=== PATIENT | female | born 1955 | race Caucasian/White ===

== ENCOUNTER → 2019-01-26 | Outpatient (CLI) | payer BC ==
--- NOTE | 2019-01-27 09:10 | MR ---
EXAMINATION TYPE: MR shoulder RT wo con DATE OF EXAM: 01/26/2019 COMPARISON: Outside x-ray dated 01/19/2019 HISTORY: RT SHOULDER PAIN X1 MONTH - PT FELL OFF OF DECK, OUTSIDE SHOULDER IMAGES ON PACS TECHNIQUE: Multiplanar, multisequence imaging of the right shoulder is performed without contrast. FINDINGS: There is narrowing of the glenohumeral joint with a small joint effusion. There is a degree of atrophy involving the rotator cuff much musculature. There is a complete tear of the supraspinatu s tendon and near complete tear of the infraspinatus tendon. Retraction of the supraspinatus tendon i s seen to the level the margin of the acromion subscapularis tendon intact. Bicipital tendon appears situated bicipital groove there is increased fluid surrounding the bicipital tendon. Chronic hypertrophic spurring along greater tuberosity. Grossly the bony labrum are intact. Glenohume ral ligaments appear to be intact. Hypertrophic spurring is seen involving the AC joint with mass effect and impingement upon the rotato r cuff. Fluid within the subacromial subdeltoid space noted. IMPRESSION: 1. Marked tendinopathy of the supra and infraspinatus tendons. There is a complete through thickness tear with retraction of the supraspinatus tendon to the level of the margin of the acromion. Note is made that there is some muscular atrophy of the rotator cuff musculature. 2. Through thickness partial but near complete tear insertion of the infraspinatus tendon with no nola dence of retraction. 3. There is a glenohumeral joint effusion. 4. Arthropathy of the AC joint and glenohumeral joint. AC joint arthropathy contributes to impingemen t. 5. Bicipital tendinosis.
== END | disposition home or self-care (01) ==
LOC: RADMRIMAIN 18:36
PROVIDERS: ATTEND Orthopaedic Surgery
DX: S46.811A Strain of other muscles, fascia and tendons at shoulder and upper arm level, right arm, initial encounter (principal); M19.011 Primary osteoarthritis, right shoulder; M67.813 Other specified disorders of tendon, right shoulder; M62.511 Muscle wasting and atrophy, not elsewhere classified, right shoulder

== ENCOUNTER → 2020-01-01 | Outpatient (CLI) | payer BC ==
--- NOTE | 2020-01-01 10:04 | US ---
EXAMINATION TYPE: US liver DATE OF EXAM: 01/01/2020 COMPARISON: NONE CLINICAL HISTORY: R74.8 Abnormal liver enzymes. Elevated liver enzymes EXAM MEASUREMENTS: Liver Length: 19.5 cm Gallbladder Wall: 0.2 cm CBD: 0.4 cm Right Kidney: 11.1 x 5.0 x 4.9 cm Pancreas: obscured by overlying midline bowel gas Liver: enlarged, heterogeneous Gallbladder: 2.8cm echogenic shadowing focus Evidence for sonographic Bar's sign: no CBD: visualized portions wnl, limited by overlying bowel gas Right Kidney: wnl IMPRESSION: 1. Cholelithiasis 2. Hepatomegaly with mild fatty infiltration.
== END | disposition home or self-care (01) ==
LOC: RADUSWWP 09:02
PROVIDERS: ATTEND Family Medicine
DX: K80.20 Calculus of gallbladder without cholecystitis without obstruction (principal); R16.0 Hepatomegaly, not elsewhere classified; K76.0 Fatty (change of) liver, not elsewhere classified
CPT/HCPCS: 76705

== ENCOUNTER 2021-01-02 13:25 | Observation (INO) | payer BC ==
--- NOTE | 2021-01-02 13:49 | ED ---
Chest Pain HPI - General Chief Complaint: Chest Pain Stated Complaint: chest pain, SOB Time Seen by Provider: 01/02/21 13:35 Source: patient Mode of arrival: ambulatory Limitations: no limitations - History of Present Illness Initial Comments: 65-year-old female past history of diabetes who presents emergency room with reported chest pain. Patient reports that she began having chest pain last night while she was doing paperwork. Pain was located in the left side of her chest and radiated to her left arm. She had associated shortness of breath and palpitations. No history of cardiac disease. She denies cough, fevers or chills. No history of DVT or PE. Does admit to lower extremity swelling which is new over the past month. Pain subsided but then reoccurred today. She has no recent cardiac workup. No ripping or tearing physician to her back. No exposure to Covid. No other alleviating, Perceptin or modifying factors - Related Data Home Medications Medication Instructions Recorded Confirmed Atorvastatin [Lipitor] 40 mg PO HS 06/27/19 01/02/21 Famotidine 40 mg PO HS 06/27/19 01/02/21 lisinopriL [Zestril] 5 mg PO HS 06/27/19 01/02/21 metFORMIN HCL [Glucophage] 1,000 mg PO BID 06/27/19 01/02/21 sitaGLIPtin [Januvia] 100 mg PO DAILY 06/27/19 01/02/21 Biotin 5 mg PO DAILY 01/02/21 01/02/21 Cholecalciferol (Vitamin D3) 125 mcg PO HS 01/02/21 01/02/21 [Vitamin D3 (5000 Iu)] Cinnamon Bark [Cinnamon] 1,000 mg PO BID 01/02/21 01/02/21 Cyanocobalamin (Vitamin B-12) 2,000 mcg PO DAILY 01/02/21 01/02/21 [Vitamin B-12] Ferrous Sulfate [Feosol] 325 mg PO HS 01/02/21 01/02/21 Magnesium Oxide [Hay] 500 mg PO HS 01/02/21 01/02/21 [place]-3 1000mg & [place] Oil 1 cap PO HS 01/02/21 01/02/21 Potassium Gluconate 99 mg PO DAILY 01/02/21 01/02/21 Thiamine HCl [Vitamin B-1] 100 mg PO BID 01/02/21 01/02/21 Turmeric Root Extract [Turmeric] 500 mg PO HS 01/02/21 01/02/21 Visionary Advanced 2 1 tab PO BID 01/02/21 01/02/21 Vitamin C/Biotin [Hair, Skin and 1 tab PO DAILY 01/02/21 01/02/21 Nails] Allergies Allergy/AdvReac Type Severity Reaction Status Date / Time sulfamethoxazole Allergy Anaphylaxis Verified 01/02/21 14:17 [From Bactrim] trimethoprim [From Bactrim] Allergy Anaphylaxis Verified 01/02/21 14:17 Review of Systems ROS Statement: Those systems with pertinent positive or pertinent negative responses have been documented in the HPI. ROS Other: All systems not noted in ROS Statement are negative. EKG Findings - EKG Comments: EKG Findings:: EKG demonstrates normal sinus rhythm with a ventricular rate of 93. MT interval 184. QRS 84. QTC of 452. No acute ST segment elevations or depressions. T-wave in lead 3 Past Medical History Past Medical History: Chest Pain / Angina, Diabetes Mellitus, GERD/Reflux, Osteoarthritis (OA), Pneumonia, Skin Disorder Additional Past Medical History / Comment(s): psoriasis, has bad knee-occ uses a cane History of Any Multi-Drug Resistant Organisms: None Reported Past Surgical History: Hysterectomy Past Anesthesia/Blood Transfusion Reactions: Motion Sickness Past Psychological History: No Psychological Hx Reported Smoking Status: Never smoker Past Alcohol Use History: None Reported Past Drug Use History: None Reported - Past Family History Mother Family Medical History: No Reported History General Exam Limitations: no limitations Course Vital Signs 01/02/21 01/02/21 13:26 16:03 Temperature 98.1 F Pulse Rate 95 86 Respiratory 20 16 Rate Blood Pressure 125/73 123/69 O2 Sat by Pulse 99 98 Oximetry Chest Pain MDM - MDM Upon arrival patient is placed into room 6. There are history of physical exam is performed. Patient hooked to continuous pulse ox and cardiac monitoring. 12-lead EKG is performed which demonstrates no acute ST segment elevation. Laboratory studies are conducted which demonstrated a negative d-dimer and a negative troponin. Chest x-ray demonstrates no acute cardiopulmonary process. Results are discussed with the patient. Did recommend admission for patient's concerning symptoms. Patient agreed to this. Spoke with Dr. Pitt who agreed to admit the patient. Patient is currently awaiting a bed on the floor Disposition Clinical Impression: Chest pain Disposition: ADMITTED IP TO THIS [facility] Condition: Stable Is patient prescribed a controlled substance at d/c from ED?: No Decision to Admit Reason: Admit from EC Decision Date: 01/02/21 Decision Time: 15:54
--- NOTE | 2021-01-02 14:43 | XR ---
EXAMINATION TYPE: XR chest 2V DATE OF EXAM: 01/02/2021 COMPARISON: NONE HISTORY: Chest pain TECHNIQUE: Frontal and lateral views of the chest are obtained. FINDINGS: There is no focal air space opacity, pleural effusion, or pneumothorax seen. The cardiac silhouette size is within normal limits. The osseous structures are intact. IMPRESSION: No acute cardiopulmonary process.
[2021-01-02 14:46] LABS: Basophils % (A) 0 %; Eosinophils # (A) 0.1 k/uL (0-0.7); Eosinophils % (A) 1 %; HGB 13.6 gm/dL (11.4-16.0); Lymphocytes # (A) 1.9 k/uL (1.0-4.8); Lymphocytes % (A) 23 %; MCH 29.7 pg (25.0-35.0); MCHC 34.9 g/dL (31.0-37.0); MCV 85.3 fL (80.0-100.0); Mean Platelet Volume 10.5; Monocytes # (A) 0.5 k/uL (0-1.0); Monocytes % (A) 7 %; Neutrophils # (A) 5.4 k/uL (1.3-7.7); Neutrophils % (A) 66 %; Platelet Count 181 k/uL (150-450); RBC 4.57 m/uL (3.80-5.40); RDW 13.6 % (11.5-15.5); WBC 8.1 k/uL (3.8-10.6)
[2021-01-02 14:55] LABS: Albumin 4.6 g/dL (3.5-5.0); Calcium 10.5 mg/dL (8.4-10.2); Magnesium 1.7 mg/dL (1.6-2.3); Potassium 4.1 mmol/L (3.5-5.1); Total Bilirubin 0.6 mg/dL (0.2-1.3); Total Protein 7.1 g/dL (6.3-8.2)
[2021-01-02 15:06] LABS: D-Dimer 0.42 mg/L FEU (<0.60); Partial Thromboplastin Time 22.1 sec (22.0-30.0); Prothrombin Time 9.9 sec (9.0-12.0)
[2021-01-02 15:14] LABS: INR 0.9 (<1.2)
[2021-01-02] MEDS ORDERED: NALOXONE 0.4 MG/ML 1 ML VIAL IV PRN (15:52)
[2021-01-02] MEDS ORDERED: ASPIRIN 81 MG PO STA (15:53)
[2021-01-02] MEDS ORDERED: ACETAMINOPHEN TAB 325 MG TAB PO PRN (16:28)
[2021-01-02] MEDS ORDERED: ONDANSETRON 4 MG/2 ML VIAL IVP PRN (16:28)
[2021-01-02 17:14] LABS: Glucose,Whole Blood 135 mg/dL (75-99)
[2021-01-02] MEDS: INSULIN ASPART (NovoLOG) 100 UNIT/ML VIAL SQ SCH ×2 (17:17→21:00)
--- NOTE | 2021-01-02 17:47 | P.HPIM ---
<Archie Alonso - Last Filed: 01/02/21 16:53> History of Present Illness H&P Date: 01/02/21 History of Presenting Illness: Patient is a very pleasant 65-year-old female with a past medical history of hypertension, hyperlipidemia, and type II [id number] diabetes mellitus. Patient presented to the emergency department with a chief complaint of chest pain radiating into left arm accompanied by palpitations. Patient reports she began experiencing left anterior chest pain radiating into the axillary and down left arm beginning yesterday early afternoon while sitting at the table doing some paperwork. the patient states initially this pain was quite intense and lasted about 30 minutes and subsided, she reports after it subsided she intermittently had milder episodes that would wax and wane throughout the rest of the day and into the evening. Patient states approximately 11:00 PM yesterday evening the pain again returned with a more moderate strength accompa nied by the feeling of her "heart racing." Pt states that this lasted until about 12:30 AM and subsided and she went to bed. Patient states when she awoke this morning she felt back to her normal self and did not have any complaints. Patient states when she was cleaning the toilet she suddenly felt extremely fatigued so she called her doctor and explained everything that happened and she was instructed to Covid straight to the emergency department for further evaluation. Upon arrival to the emergency department patient had an EKG which revealed normal sinus rhythm and 93 bpm with no noted T-wave or ST abnormalities. A chest x-ray was completed which was negative for acute cardiopulmonary process.labs obtained including CBC and BMP which were unremarkable, troponin which was negative at < 0.012, and .Magnesium which was slightly low at 1.7. Patient is admitted under our services with consultation to cardiology. Patient currently reports chest pain and left arm pain with palpitations has subsided at time of assessment. She denies having any cardiac history or ever experiencing any similar symptoms like this in the past. She denies having any headache, lightheadedness, dizziness, shortness of breath or dyspnea with exertion, abdominal pain, nausea, vomiting, or experiencing any numbness/tingling/weakness in her extremities. Patient does report chronic lower extremity edema in which she reports is currently improved from its baseline.. Review of systems: Pertinent positives and negatives as discussed in HPI, a complete review of systems was performed and all other systems are negative. Physical exam: Vital signs reviewed and stable. General: Nontoxic, no distress and appears stated age. Derm: Skin warm and dry, normal coloration for ethnicity. Head: Atraumatic, normocephalic and symmetric. Eyes: EOMs intact, no lid lag, and anicteric sclera Mouth: no lip lesions, mucus membranes moist Cardiovascular: regular rate and rhythm with normal S1S2, no murmur, positive posterior tibial pulses bilaterally, and cap refill < 2 seconds. Lungs: Respirations even, regular, and unlabored on room air. Lungs CTA bilaterally, no rhonchi, no rales, no wheezing, and no accessory muscle usage. Abdominal: soft, nontender to palpation, no guarding, no appreciable organomegaly Ext: ROM intact. No gross muscle atrophy, no contractures. 1+ pitting bilateral lower extremity edema. Neuro: Speech clear, face symmetrical and CN II-XII grossly intact with no noted focal neuro deficits Psych: Alert and oriented to person, place, time, and situation. Appropriate and pleasant affect. Assessment and Plan of Care: Chest pain radiating into left arm accompanied by palpitations -EKG revealing normal sinus rhythm and 93 bpm with no noted T wave or ST abnormality showing no signs of acute ischemia. -Troponin < 0.012, we will continue to trend every 3 hours 2 additional draws. -Cardiology consult -Telemetry monitoring. -Daily aspirin and atorvastatin. -Lipid profile hemoglobin A1c with a.m. labs. Hypertension -Monitor vital signs and continue daily medication regimen with lisinopril. Hyperlipidemia -continue daily medication regimen with atorvastatin. -Heart healthy carb consistent diet. -Lipid profile with a.m. labs. Type II [id number] diabetes mellitus -Hold oral glycemic medications in place patient on glycemic protocol with NovoLog sliding scale. The patient is admitted with an anticipated less than 2 midnight stay for evaluation of chest pain radiating into left arm accompanied by palpitations. CODE STATUS: full code DVT prophylaxis: heparin Discussed with: patient Anticipated discharge date: 1-[address]: home A total of 45 minutes was spent on the care of this complex patient more than 50% of the time was spent in counseling and care coordination. Past Medical History Past Medical History: Chest Pain / Angina, Diabetes Mellitus, GERD/Reflux, Osteoarthritis (OA), Pneumonia, Skin Disorder Additional Past Medical History / Comment(s): psoriasis, has bad knee-occ uses a cane History of Any Multi-Drug Resistant Organisms: None Reported Past Surgical History: Hysterectomy Past Anesthesia/Blood Transfusion Reactions: Motion Sickness Past Psychological History: No Psychological Hx Reported Smoking Status: Never smoker Past Alcohol Use History: None Reported Past Drug Use History: None Reported - Past Family History Mother Family Medical History: No Reported History Medications and Allergies Home Medications Medication Instructions Recorded Confirmed Type Atorvastatin [Lipitor] 40 mg PO HS 06/27/19 01/02/21 History Famotidine 40 mg PO HS 06/27/19 01/02/21 History lisinopriL [Zestril] 5 mg PO HS 06/27/19 01/02/21 History metFORMIN HCL [Glucophage] 1,000 mg PO BID 06/27/19 01/02/21 History sitaGLIPtin [Januvia] 100 mg PO DAILY 06/27/19 01/02/21 History Biotin 5 mg PO DAILY 01/02/21 01/02/21 History Cholecalciferol (Vitamin D3) 125 mcg PO HS 01/02/21 01/02/21 History [Vitamin D3 (5000 Iu)] Cinnamon Bark [Cinnamon] 1,000 mg PO BID 01/02/21 01/02/21 History Cyanocobalamin (Vitamin B-12) 2,000 mcg PO DAILY 01/02/21 01/02/21 History [Vitamin B-12] Ferrous Sulfate [Feosol] 325 mg PO HS 01/02/21 01/02/21 History Magnesium Oxide [Hay] 500 mg PO HS 01/02/21 01/02/21 History [place]-3 1000mg & [place] Oil 1 cap PO HS 01/02/21 01/02/21 History Potassium Gluconate 99 mg PO DAILY 01/02/21 01/02/21 History Thiamine HCl [Vitamin B-1] 100 mg PO BID 01/02/21 01/02/21 History Turmeric Root Extract [Turmeric] 500 mg PO HS 01/02/21 01/02/21 History Visionary Advanced 2 1 tab PO BID 01/02/21 01/02/21 History Vitamin C/Biotin [Hair, Skin and 1 tab PO DAILY 01/02/21 01/02/21 History Nails] Allergies Allergy/AdvReac Type Severity Reaction Status Date / Time sulfamethoxazole Allergy Anaphylaxis Verified 07/16/21 14:17 [From Bactrim] trimethoprim [From Bactrim] Allergy Anaphylaxis Verified 01/02/21 14:17 Physical Exam Vitals: Vital Signs Temp Pulse Pulse Resp BP BP Pulse Ox 01/02/21 16:49 98.1 F 76 16 137/85 96 01/02/21 16:03 86 16 123/69 98 01/02/21 13:26 98.1 F 95 20 125/73 99 Intake and Output 01/02/21 01/02/21 01/02/21 06:59 14:59 22:59 Other: Weight 110.677 kg Results CBC & Chem 7: 01/02/21 14:09 01/02/21 14:09 Labs: Abnormal Lab Results - Last 24 Hours (Table) 01/02/21 Range/Units 14:09 Glucose 165 H (74-99) mg/dL Calcium 10.5 H (8.4-10.2) mg/dL ALT 49 H (4-34) U/L <Kristal Osuna - Last Filed: 01/02/21 22:23> Physical Exam Osteopathic Statement: *. No significant issues noted on an osteopathic structural exam other than those noted in the History and Physical/Consult. Vitals: Vital Signs Temp Pulse Pulse Resp BP BP Pulse Ox 01/02/21 18:50 98.1 F 74 20 151/76 97 01/02/21 16:49 98.1 F 76 16 137/85 96 01/02/21 16:03 86 16 123/69 98 01/02/21 13:26 98.1 F 95 20 125/73 99 Intake and Output 01/02/21 01/02/21 01/02/21 06:59 14:59 22:59 Other: # Voids 1 Weight 110.677 kg 110.677 kg Results CBC & Chem 7: 01/02/21 14:09 01/02/21 14:09 Labs: Abnormal Lab Results - Last 24 Hours (Table) 01/02/21 01/02/21 01/02/21 Range/Units 14:09 17:13 20:46 Glucose 165 H (74-99) mg/dL POC Glucose (mg/dL) 135 H 187 H (75-99) mg/dL Calcium 10.5 H (8.4-10.2) mg/dL ALT 49 H (4-34) U/L Assessment and Plan Assessment: Patient seen and examined independently. Patient was also seen by Archie Alonso NP and case was discussed. I am in agreement with subjective, physical exam, assessment and plan as written above and amended below. Patient reports that she is currently chest pain-free. She has a long-standing history of psoriasis and uses a cream. No nausea or vomiting. She does not want have to be on long-term insulin and she is a tractor trailer truck driver. No other complaints currently. All questions answered. General: non toxic, no distress, appears at stated age Derm: Large areas of plaquing over back with pinpoint areas of bleeding, with scale Head: atraumatic, normocephalic, symmetric Eyes: EOMI, no lid lag, anicteric sclera Mouth: no lip lesion, mucus membranes moist Cardiovascular: S1S2 reg, no murmur, positive posterior tibial pulse bilateral, Lungs: CTA bilateral, no rhonchi, no rales , no accessory muscle use Abdominal: soft, nontender to palpation, no guarding, no appreciable organomegaly Ext: no gross muscle atrophy, no edema, no contractures Neuro: CN II-XI grossly intact, no focal neuro deficits Psych: Alert, oriented, appropriate affect
[2021-01-02] MEDS: MAGNESIUM SULFATE-D5W PMX 1 GM in DEXTROSE/WATER 1 100ML.BAG IVPB SCH ×2 (17:50→19:01)
[2021-01-02 20:52] LABS: Glucose,Whole Blood 187 mg/dL (75-99)
[2021-01-02] MEDS ORDERED: FERROUS SULFATE 325 MG TAB PO SCH (21:00)
[2021-01-02] MEDS ORDERED: ATORVASTATIN 40 MG TAB PO SCH (21:00)
[2021-01-02] MEDS ORDERED: lisinopriL 5 MG TAB PO SCH (21:00)
[2021-01-02] MEDS ORDERED: FAMOTIDINE 20 MG TAB PO SCH (21:00)
[2021-01-02] MEDS: HEPARIN SODIUM,PORCINE/PF 5,000 UNIT/0.5 ML SYRINGE SQ SCH (23:31)
[2021-01-03 01:57] VITALS: RESP 18
[2021-01-03 07:13] LABS: Glucose,Whole Blood 153 mg/dL (75-99)
[2021-01-03 07:44] VITALS: BP 117/81; PULSE 73; TEMP 97.7
--- NOTE | 2021-01-03 08:01 | P.CRDCN ---
History of Present Illness Consult date: 01/03/21 Chief complaint: Chest pain History of present illness: This is a very pleasant 65-year-old female patient with a past medical history significant for diabetes and hypertension and dyslipidemia requested to severe in the observation unit for chest discomfort. The patient was in her usual state of health yesterday when she was at home and suddenly started experiencing left arm discomfort. That was associated with "heart pounding" without any pain or discomfort in the chest. The discomfort in the arm lasted for few minutes and because she had a concern about that she decided to come to the emergency department. Currently the patient is pain-free in terms of the arm or the chest. No associated symptoms of shortness of breath or dizziness or lightheadedness or any feeling of heart racing or fluttering or syncope. She underwent an EKG which showed sinus rhythm without any significant ST or T-wave abnormalities. She underwent a blood work including troponin and that came in to be unremarkable. No history of coronary artery disease or congestive heart failure or cardiac arrhythmia and the patient never seen any cath lab radiological technologist in the past. The chest x-ray also came in to be unremarkable. The rest of the blood work came in to be unremarkable. Past Medical History Past Medical History: Chest Pain / Angina, Diabetes Mellitus, GERD/Reflux, Osteoarthritis (OA), Pneumonia, Skin Disorder Additional Past Medical History / Comment(s): psoriasis, has bad knee-occ uses a cane History of Any Multi-Drug Resistant Organisms: None Reported Past Surgical History: Hysterectomy Past Anesthesia/Blood Transfusion Reactions: Motion Sickness Past Psychological History: No Psychological Hx Reported Smoking Status: Never smoker Past Alcohol Use History: None Reported Past Drug Use History: None Reported - Past Family History Mother Family Medical History: No Reported History Medications and Allergies Home Medications Medication Instructions Recorded Confirmed Type Atorvastatin [Lipitor] 40 mg PO HS 06/27/19 01/02/21 History Famotidine 40 mg PO HS 06/27/19 01/02/21 History lisinopriL [Zestril] 5 mg PO HS 06/27/19 01/02/21 History metFORMIN HCL [Glucophage] 1,000 mg PO BID 06/27/19 01/02/21 History sitaGLIPtin [Januvia] 100 mg PO DAILY 06/27/19 01/02/21 History Biotin 5 mg PO DAILY 01/02/21 01/02/21 History Cholecalciferol (Vitamin D3) 125 mcg PO HS 01/02/21 01/02/21 History [Vitamin D3 (5000 Iu)] Cinnamon Bark [Cinnamon] 1,000 mg PO BID 01/02/21 01/02/21 History Cyanocobalamin (Vitamin B-12) 2,000 mcg PO DAILY 01/02/21 01/02/21 History [Vitamin B-12] Ferrous Sulfate [Feosol] 325 mg PO HS 01/02/21 01/02/21 History Magnesium Oxide [Hay] 500 mg PO HS 01/02/21 01/02/21 History [place]-3 1000mg & [place] Oil 1 cap PO HS 01/02/21 01/02/21 History Potassium Gluconate 99 mg PO DAILY 01/02/21 01/02/21 History Thiamine HCl [Vitamin B-1] 100 mg PO BID 01/02/21 01/02/21 History Turmeric Root Extract [Turmeric] 500 mg PO HS 01/02/21 01/02/21 History Visionary Advanced 2 1 tab PO BID 01/02/21 01/02/21 History Vitamin C/Biotin [Hair, Skin and 1 tab PO DAILY 01/02/21 01/02/21 History Nails] Allergies Allergy/AdvReac Type Severity Reaction Status Date / Time sulfamethoxazole Allergy Anaphylaxis Verified 01/02/21 14:17 [From Bactrim] trimethoprim [From Bactrim] Allergy Anaphylaxis Verified 01/02/21 14:17 Physical Exam Vitals: Vital Signs Temp Pulse Pulse Resp BP BP Pulse Ox 01/03/21 07:00 97.7 F 73 18 117/81 94 L 01/03/21 01:32 97.6 F 76 18 111/72 99 01/02/21 18:50 98.1 F 74 20 151/76 97 01/02/21 16:49 98.1 F 76 16 137/85 96 01/02/21 16:03 86 16 123/69 98 01/02/21 13:26 98.1 F 95 20 125/73 99 Intake and Output 01/02/21 01/03/21 01/03/21 22:59 06:59 14:59 Other: # Voids 1 2 Weight 110.677 kg - Constitutional General appearance: no acute distress - Respiratory Respiratory: bilateral: CTA - Cardiovascular Rhythm: regular Heart sounds: normal: S1, S2 Results 01/02/21 14:09 01/02/21 14:09 Cardiac Enzymes 01/02/21 01/02/21 01/02/21 Range/Units 14:09 14:09 17:15 AST 32 (14-36) U/L Troponin I <0.012 <0.012 (0.000-0.034) ng/mL 01/02/21 Range/Units 20:49 AST (14-36) U/L Troponin I <0.012 (0.000-0.034) ng/mL Coagulation 01/02/21 Range/Units 14:09 PT 9.9 (9.0-12.0) sec APTT 22.1 (22.0-30.0) sec CBC 01/02/21 Range/Units 14:09 WBC 8.1 (3.8-10.6) k/uL RBC 4.57 (3.80-5.40) m/uL Hgb 13.6 (11.4-16.0) gm/dL Hct 39.0 (34.0-46.0) % Plt Count 181 (150-450) k/uL Comprehensive Metabolic Panel 01/02/21 Range/Units 14:09 Sodium 143 (137-145) mmol/L Potassium 4.1 (3.5-5.1) mmol/L Chloride 104 (98-107) mmol/L Carbon Dioxide 30 (22-30) mmol/L BUN 16 (7-17) mg/dL Creatinine 0.87 (0.52-1.04) mg/dL Glucose 165 H (74-99) mg/dL Calcium 10.5 H (8.4-10.2) mg/dL AST 32 (14-36) U/L ALT 49 H (4-34) U/L Alkaline Phosphatase 67 (38-126) U/L Total Protein 7.1 (6.3-8.2) g/dL Albumin 4.6 (3.5-5.0) g/dL Current Medications Generic Name Dose Route Start Last Admin Trade Name Freq PRN Reason Stop Dose Admin Acetaminophen 650 mg 01/02/21 16:28 Acetaminophen Tab 325 Mg Tab PO Q6HR PRN Mild Pain or Fever > 100.5 Aspirin 81 mg 01/03/21 09:00 Aspirin 81 Mg PO DAILY JHONY Atorvastatin Calcium 40 mg 01/02/21 21:00 01/02/21 20:04 Atorvastatin 40 Mg Tab PO 40 mg HS JHONY Administration Famotidine 40 mg 01/02/21 21:00 01/02/21 20:04 Famotidine 20 Mg Tab PO 40 mg HS JHONY Administration Ferrous Sulfate 325 mg 01/02/21 21:00 01/02/21 20:04 Ferrous Sulfate 325 Mg Tab PO 325 mg HS JHONY Administration Heparin Sodium (Porcine) 5,000 unit 01/03/21 00:00 01/02/21 23:31 Heparin Sodium,Porcine/Pf 5,000 Unit/0.5 Ml Syringe SQ 5,000 unit Q8HR JHONY Administration Insulin Aspart 0 unit 01/02/21 17:30 01/02/21 21:00 Insulin Aspart (Novolog) 100 Unit/Ml Vial SQ 3 unit ACHS JHONY Administration Protocol Lisinopril 5 mg 01/02/21 21:00 01/02/21 20:04 Lisinopril 5 Mg Tab PO 5 mg HS JHONY Administration Naloxone HCl 0.2 mg 01/02/21 15:52 Naloxone 0.4 Mg/Ml 1 Ml Vial IV Q2M PRN Opioid Reversal Ondansetron HCl 4 mg 01/02/21 16:28 Ondansetron 4 Mg/2 Ml Vial IVP Q8HR PRN Nausea And Vomiting Intake and Output 01/02/21 01/03/21 01/03/21 22:59 06:59 14:59 Other: # Voids 1 2 Weight 110.677 kg 01/02/21 14:09 01/02/21 14:09 Assessment and Plan Assessment: Assessment #1 left arm discomfort #2 multiple comorbidities including hypertension and dyslipidemia and diabetes Plan #1 acute coronary event was ruled out #2 stress test to rule out severe CAD was advised. The patient would like to go home and have the test done as an outpatient.
[2021-01-03] MEDS: INSULIN ASPART (NovoLOG) 100 UNIT/ML VIAL SQ SCH (08:04)
[2021-01-03] MEDS: HEPARIN SODIUM,PORCINE/PF 5,000 UNIT/0.5 ML SYRINGE SQ SCH (08:04)
[2021-01-03 08:59] LABS: African American GFR (CKD) 78.3 (60.0-200.0); Anion Gap 7.5 mmol/L (4.00-12.00); BUN/Creat Ratio 15.56 Ratio (12.00-20.00); Calcium 9.3 mg/dL (8.7-10.3); Carbon Dioxide 27.5 mmol/L (21.6-31.8); Chol/HDL Ratio 4.06; Non-African American GFR(CKD) 67.6 (60.0-200.0); Potassium 3.9 mmol/L (3.5-5.5)
[2021-01-03] MEDS ORDERED: ASPIRIN 81 MG PO SCH (09:00)
[2021-01-03 09:33] LABS: Basophils # (A) 0.03 X 10*3/uL (0.00-0.10); Basophils % (A) 0.4 %; Eosinophils # (A) 0.11 X 10*3/uL (0.04-0.35); Eosinophils % (A) 1.6 %; HGB 12.5 g/dL (12.0-15.0); Lymphocytes # (A) 1.99 X 10*3/uL (0.90-5.00); Lymphocytes % (A) 29.6 %; MCH 28.3 pg (27.0-32.0); MCHC 32.1 g/dL (32.0-37.0); MCV 88.2 fL (80.0-97.0); Mean Platelet Volume 12.9 fL (9.5-12.2); Monocytes # (A) 0.66 X 10*3/uL (0.20-1.00); Monocytes % (A) 9.8 %; Neutrophils # (A) 3.91 X 10*3/uL (1.80-7.70); Neutrophils % (A) 58.3 %; Platelet Count 174 X 10*3/uL (140-440); RBC 4.42 X 10*6/uL (4.10-5.20); RDW 13.6 % (11.5-14.5); WBC 6.72 X 10*3/uL (4.50-10.00)
--- NOTE | 2021-01-03 09:51 | P.DS ---
<Archie Alonso - Last Filed: 01/03/21 17:34> Providers Expected date of discharge: 01/03/21 Hospital Course: Discharge Diagnosis: Chest pain radiating into left arm accompanied by palpitations, acute coronary event ruled out Hypertension Hyperlipidemia Type II [id number] diabetes mellitus Hospital Course: Patient is a very pleasant 65-year-old female with a past medical history of hypertension, hyperlipidemia, and type II rry-qmqsaen-pmpxyplao diabetes mellitus. Patient presented to the emergency department with a chief complaint of chest pain radiating into left arm accompanied by palpitations. Patient reports she began experiencing left anterior chest pain radiating into the axillary and down left arm beginning yesterday early afternoon while sitting at the table doing some paperwork. the patient states initially this pain was quite intense and lasted about 30 minutes and subsided, she reports after it subsided she intermittently had milder episodes that would wax and wane throughout the rest of the day and into the evening. Patient states approximately 11:00 PM yesterday evening the pain again returned with a more moderate strength accompanied by the feeling of her "heart racing." Pt states that this lasted until about 12:30 AM and subsided and she went to bed. Patient states when she awoke this morning she felt back to her normal self and did not have any compla ints. Patient states when she was cleaning the toilet she suddenly felt extremely fatigued so she called her doctor and explained everything that happened and she was instructed to Covid straight to the emergency department for further evaluation. Upon arrival to the emergency department patient had an EKG which revealed normal sinus rhythm and 93 bpm with no noted T-wave or ST abnormalities. A chest x-ray was completed which was negative for acute cardiopulmonary process.labs obtained including CBC and BMP which were unremarkable,.Magnesium which was slightly low at 1.7. Patient was admitted under our services with consultation to cardiology. Troponin's were trended x 3 draws, all negative at < 0.012. Since admission patient reports chest pain, left arm pain, and palpitations were all subsided and have not returned. She was seen and evaluated by cardiology and recommended patient have a stress test completed. Patient discussed with ophthalmology assistant that she will follow-up outpatient in his office next week to have stress test completed as he strongly recommended. Patient cleared from cardiac standpoint and to follow up outpatient next week. Patient instructed if chest pain returns she is to seek medical treatment immediately. Currently patient medically stable for discharge home. Patient verbalized discharge instructions and all questions answered. Physical exam: Vital signs reviewed and stable. General: Nontoxic, no distress and appears stated age. Derm: Skin warm and dry, normal coloration for ethnicity. Head: Atraumatic, normocephalic and symmetric. Eyes: EOMs intact, no lid lag, and anicteric sclera Mouth: no lip lesions, mucus membranes moist Cardiovascular: regular rate and rhythm with normal S1S2, no murmur, positive posterior tibial pulses bilaterally, and cap refill < 2 seconds. Lungs: Respirations even, regular, and unlabored on room air. Lungs CTA bilaterally, no rhonchi, no rales, no wheezing, and no accessory muscle usage. Abdominal: soft, nontender to palpation, no guarding, no appreciable organomegaly Ext: ROM intact. No gross muscle atrophy, no contractures. 1+ pitting bilateral lower extremity edema. Neuro: Speech clear, face symmetrical and CN II-XII grossly intact with no noted focal neuro deficits Psych: Alert and oriented to person, place, time, and situation. Appropriate and pleasant affect. A total of 45 minutes of time were spent preparing this complex discharge summary. Patient Condition at Discharge: Stable Plan - Discharge Summary Discharge Rx Participant: No New Discharge Prescriptions: New Aspirin 81 mg PO DAILY chew Continue Famotidine 40 mg PO HS sitaGLIPtin [Januvia] 100 mg PO DAILY Atorvastatin [Lipitor] 40 mg PO HS metFORMIN HCL [Glucophage] 1,000 mg PO BID lisinopriL [Zestril] 5 mg PO HS Magnesium Oxide [Hay] 500 mg PO HS Cyanocobalamin (Vitamin B-12) [Vitamin B-12] 2,000 mcg PO DAILY Cholecalciferol (Vitamin D3) [Vitamin D3 (5000 Iu)] 125 mcg PO HS Potassium Gluconate 99 mg PO DAILY Cinnamon Bark [Cinnamon] 1,000 mg PO BID [place]-3 1000mg & [place] Oil 1 cap PO HS Thiamine HCl [Vitamin B-1] 100 mg PO BID Turmeric Root Extract [Turmeric] 500 mg PO HS Vitamin C/Biotin [Hair, Skin and Nails] 1 tab PO DAILY Ferrous Sulfate [Iron (65 MG Elemental)] 325 mg PO HS Biotin 5 mg PO DAILY Visionary Advanced 2 1 tab PO BID Discharge Medication List Atorvastatin [Lipitor] 40 mg PO HS 06/27/19 [History] Famotidine 40 mg PO HS 06/27/19 [History] lisinopriL [Zestril] 5 mg PO HS 06/27/19 [History] metFORMIN HCL [Glucophage] 1,000 mg PO BID 06/27/19 [History] sitaGLIPtin [Januvia] 100 mg PO DAILY 06/27/19 [History] Biotin 5 mg PO DAILY 01/02/21 [History] Cholecalciferol (Vitamin D3) [Vitamin D3 (5000 Iu)] 125 mcg PO HS 01/02/21 [History] Cinnamon Bark [Cinnamon] 1,000 mg PO BID 01/02/21 [History] Cyanocobalamin (Vitamin B-12) [Vitamin B-12] 2,000 mcg PO DAILY 01/02/21 [History] Ferrous Sulfate [Iron (65 MG Elemental)] 325 mg PO HS 01/02/21 [History] Magnesium Oxide [Hay] 500 mg PO HS 01/02/21 [History] [place]-3 1000mg & [place] Oil 1 cap PO HS 01/02/21 [History] Potassium Gluconate 99 mg PO DAILY 01/02/21 [History] Thiamine HCl [Vitamin B-1] 100 mg PO BID 01/02/21 [History] Turmeric Root Extract [Turmeric] 500 mg PO HS 01/02/21 [History] Visionary Advanced 2 1 tab PO BID 01/02/21 [History] Vitamin C/Biotin [Hair, Skin and Nails] 1 tab PO DAILY 01/02/21 [History] Aspirin 81 mg PO DAILY chew 01/03/21 [Rx] Follow up Appointment(s)/Referral(s): oRmán Ballard MD [STAFF PHYSICIAN] - 1 Week (Office will call on Tuesday with appointment time) Marcelo Stanley MD [Primary Care Provider] - 1-2 days (Please call Tuesday am to make appointment) Activity/Diet/Wound Care/Special Instructions: Activity: As tolerated. Diet: Heart healthy and carb consistent diet. Special Instructions: You will need to follow up outpatient with your [facility], Dr. Ballard as discussed for a Stress test to completely rule out severe coronary artery disease as he advised. If at any time you experience return of chest pain, it is very important to return to the ER to seek medical attention immediately. Thank you for allowing us to participate in your care, it was a pleasure having you for her patient. Discharge Disposition: HOME SELF-CARE <Kristal Osuna - Last Filed: 01/03/21 19:16> Providers Date of admission: 01/02/21 15:53 Attending physician: Kristal Osuna DO Consults: 01/02/21 15:52 Consult Physician Urgent Consulting Provider: [facility] Consult Reason/Comments: acute chest pain, possible acs Do you want consulting provider notified?: Yes Primary care physician: Marcelo Stanley Hospital Course: Patient seen and examined independently. Patient was also seen by Archie Alonso NP and case was discussed. I am in agreement with discharge diagnosis, hospital course, and physical exam as written above and amended below. Patient seen up and watch him hallway. She denies any recurrent chest pain. She feels comfortable doing outpatient stress test. Ambulate without difficulty. General: non toxic, no distress, appears at stated age Derm: warm, dry Head: atraumatic, normocephalic, symmetric Eyes: EOMI, no lid lag, anicteric sclera Neuro: CN II-XI grossly intact, no focal neuro deficits Psych: Alert, oriented, appropriate affect
[2021-01-03 14:44] LABS: Hemoglobin A1C 7.1 % (4.0-6.0)
== END 2021-01-03 12:29 | disposition home or self-care (01) ==
LOC: EC 13:25 → 6NMEDSUR 15:53
PROVIDERS: ADMIT Internal Medicine; ATTEND Internal Medicine
DX: R07.89 Other chest pain (principal); R00.2 Palpitations; E78.5 Hyperlipidemia, unspecified; I10 Essential (primary) hypertension; E11.9 Type 2 diabetes mellitus without complications; R00.0 Tachycardia, unspecified; R60.0 Localized edema; R06.02 Shortness of breath; M19.90 Unspecified osteoarthritis, unspecified site; K21.9 Gastro-esophageal reflux disease without esophagitis; M79.89 Other specified soft tissue disorders; L40.9 Psoriasis, unspecified; Z87.01 Personal history of pneumonia (recurrent); Z79.84 Long term (current) use of oral hypoglycemic drugs; Z79.899 Other long term (current) drug therapy; Z88.2 Allergy status to sulfonamides; Z90.710 Acquired absence of both cervix and uterus
CPT/HCPCS: 96365; 96366; 96372 ×2; 99285; 36415; 93005; 85379; 83880; 80061; 80053; 80048; 83735; 84484; 85025 ×2; 85610; 85730; 83036; 71046; G0378 ×2; J3475; J1644 ×2

== ENCOUNTER → 2021-05-04 | Outpatient (CLI) | payer BC ==
[~2021-05-04] MED LIST: CASIRIVIMAB (REGN10933) (EUA) 600 MG, IMDEVIMAB (REGN10987) (EUA) 600 MG in SODIUM CHLO... IVPB ONE; SODIUM CHLORIDE 0.9% 50 ML IVPB ONE; SODIUM CHLORIDE 0.9% 500 ML 500 ML in EMPTY BAG 1 BAG IV PRN
[2021-05-04 14:16] VITALS: BP 129/66; PULSE 99; RESP 20; TEMP 98.8
== END ==
LOC: PROCWHC3 13:04
PROVIDERS: ATTEND Family Medicine
DX: U07.1 COVID-19 (principal); E66.9 Obesity, unspecified; Z68.41 Body mass index [BMI] 40.0-44.9, adult; Z88.2 Allergy status to sulfonamides
CPT/HCPCS: 96360; Q0243; M0243

== ENCOUNTER → 2021-08-18 | Outpatient (CLI) | payer BC ==
--- NOTE | 2021-08-21 11:37 | MM ---
Reason for exam: additional evaluation requested from prior study. Last mammogram was performed 1 year and 1 month ago. History: Patient is postmenopausal. Family history of breast cancer in paternal grandmother. Physical Findings: A clinical breast exam by your physician is recommended on an annual basis and results should be correlated with mammographic findings. MG 3D Diag Mammo W/Cad NICOLE Bilateral CC and MLO view(s) were taken. XCCL view(s) were taken of the left breast. Prior study comparison: July 09, 2020, mammogram, performed at [facility]. August 22, 2018, mammogram, performed at [facility]. The breast tissue is heterogeneously dense. This may lower the sensitivity of mammography. Stable nodule right breast at 9 o'clock. These results were verbally communicated with the patient on 08/21/21. ASSESSMENT: Incomplete: need additional imaging evaluation, BI-RAD 0 RECOMMENDATION: Ultrasound of the right breast.
--- NOTE | 2021-08-21 11:37 | USB ---
Reason for exam: additional evaluation requested from abnormal screening. History: Patient is postmenopausal. Family history of breast cancer in paternal grandmother. US Breast LT Left complete breast ultrasound includes all four quadrants, the retroareolar region and axilla. Finding demonstrates no cystic or solid lesion seen. These results were verbally communicated with the patient and result sheet given to the patient on 08/18/21. ASSESSMENT: Negative, BI-RAD 1 RECOMMENDATION: Routine screening mammogram of both breasts in 1 year.
== END | disposition home or self-care (01) ==
LOC: RADMAMWWP 08:16
PROVIDERS: ATTEND Family Medicine
DX: N63.15 Unspecified lump in the right breast, overlapping quadrants (principal); Z80.3 Family history of malignant neoplasm of breast; Z78.0 Asymptomatic menopausal state
CPT/HCPCS: 77062; 77066

== ENCOUNTER 2022-05-18 07:57 | Day surgery (SDC) | payer BC, MEDICARE ==
[2022-05-10 15:35] VITALS: BMI 38.6
[~2022-05-18 07:57] MED LIST changes: -CASIRIVIMAB (REGN10933) (EUA) 600 MG, IMDEVIMAB (REGN10987) (EUA) 600 MG in SODIUM CHLO... IVPB ONE; +LACTATED RINGERS 1,000 ML IV SCH; -SODIUM CHLORIDE 0.9% 50 ML IVPB ONE; -SODIUM CHLORIDE 0.9% 500 ML 500 ML in EMPTY BAG 1 BAG IV PRN
[2022-05-18 08:24] VITALS: TEMP 97.4
[2022-05-18 08:39] LABS: Glucose,Whole Blood 127 mg/dL (70-110)
[2022-05-18] MEDS ORDERED: PROPOFOL 10 MG/ML 20 ML VIAL IV ONE (08:55)
--- NOTE | 2022-05-18 08:58 | P.GSHP ---
History of Present Illness H&P Date: 05/18/22 Chief Complaint: Colon cancer screening [age]-year-old female here today for colonoscopy. She says she has not had one before. No bowel complaints. No family history of colon cancer. Past Medical History Past Medical History: Asthma, Diabetes Mellitus, GERD/Reflux, Osteoarthritis (OA), Pneumonia, Skin Disorder Additional Past Medical History / Comment(s): psoriasis, has two knee, History of Any Multi-Drug Resistant Organisms: None Reported Past Surgical History: Hysterectomy, Orthopedic Surgery Additional Past Surgical History / Comment(s): rt shoulder surgery after injury Past Anesthesia/Blood Transfusion Reactions: Motion Sickness Smoking Status: Never smoker - Past Family History Mother Family Medical History: No Reported History Medications and Allergies Home Medications Medication Instructions Recorded Confirmed Type Atorvastatin [Lipitor] 40 mg PO DAILY 06/27/19 05/18/22 History Famotidine 40 mg PO DAILY 06/27/19 05/18/22 History lisinopriL [Zestril] 5 mg PO W/SUPPER 06/27/19 05/18/22 History metFORMIN HCL [Glucophage] 1,000 mg PO BID 06/27/19 05/18/22 History Cinnamon Bark [Cinnamon] 1,000 mg PO BID 01/02/21 05/18/22 History Cyanocobalamin (Vitamin B-12) 2,000 mcg PO DAILY 01/02/21 05/18/22 History [Vitamin B-12] [place]-3 1000mg & [place] Oil 1 cap PO DAILY 01/02/21 05/18/22 History Potassium Gluconate [Potassium 99 mg PO DAILY 01/02/21 05/18/22 History Gluconate ER] Turmeric Root Extract [Turmeric] 500 mg PO HS 01/02/21 05/18/22 History Aspirin 81 mg PO DAILY chew 01/03/21 05/10/22 Rx Biotin [Biotin Disolve] 10,000 mcg PO DAILY 05/10/22 05/18/22 History Cholecalciferol [Vitamin D3 (125 125 mcg PO HS 05/10/22 05/18/22 History Mcg = 5000 Iu)] Retinavites 1 tab PO BID 05/10/22 05/18/22 History Vit C/E/Zn/Coppr/Lutein/Zeaxan 1 each PO DAILY 11/21/22 11/29/22 History [Preservision Areds 2 Softgel] Vitamin B Complex 1 each PO DAILY 05/10/22 05/18/22 History Allergies Allergy/AdvReac Type Severity Reaction Status Date / Time sulfamethoxazole Allergy Anaphylaxis Verified 05/18/22 08:20 [From Bactrim] trimethoprim [From Bactrim] Allergy Anaphylaxis Verified 05/18/22 08:20 Surgical - Exam Vital Signs Temp Pulse Resp BP Pulse Ox 97.4 F L 80 18 150/72 96 05/18/22 08:23 05/18/22 08:23 05/18/22 08:23 05/18/22 08:23 05/18/22 08:23 Physical exam: General: Well-developed, well-nourished HEENT: Normocephalic, sclerae nonicteric Abdomen: Nontender, nondistended Extremities: No edema Neuro: Alert and oriented Results - Labs Abnormal Lab Results - Last 24 Hours (Table) 05/18/22 Range/Units 08:36 POC Glucose (mg/dL) 127 H (70-110) mg/dL Assessment and Plan Assessment: Will proceed with colonoscopy at this time.
--- NOTE | 2022-05-18 09:12 | P.PCN ---
Date of Procedure: 05/18/22 Procedure(s) Performed: PREOPERATIVE DIAGNOSIS: Colon cancer screening POSTOPERATIVE DIAGNOSIS: Rectal polyp, diverticulosis PROCEDURE: Colonoscopy with snare polypectomy ANESTHESIA: MAC SURGEON: Luis Alberto Saez M.D. SPECIMENS: Polyp ENDOSCOPIC PROCEDURE: The patient was placed on the endoscopy table in the left decubitus position. The Olympus colonoscope was inserted into the anus and passed under direct visualization to the base of the cecum. The appendiceal orifice was visualized. From that point the scope was slowly withdrawn inspecting all surfaces carefully. There were no neoplastic inflammatory or polypoid lesions throughout the cecum, ascending, transverse, descending, and sigmoid colon. In the rectum a small polyp was seen and removed using the snare with cautery technique. The remainder of the rectum was normal. There was mild left sided diverticulosis. Digital rectal examination was normal. The patient was taken to the recovery room in stable condition per anesthesia guidelines. RECOMMENDATIONS: Await biopsy results. Likely repeat colonoscopy 5 years.
[2022-05-18 09:33] VITALS: BP 124/81; PULSE 69; RESP 16
== END 2022-05-18 10:02 | disposition home or self-care (01) ==
LOC: ORWHC2ENDO 07:57
PROVIDERS: ATTEND Surgery
DX: Z12.11 Encounter for screening for malignant neoplasm of colon (principal); D12.8 Benign neoplasm of rectum; K57.30 Diverticulosis of large intestine without perforation or abscess without bleeding; E11.9 Type 2 diabetes mellitus without complications; Z79.84 Long term (current) use of oral hypoglycemic drugs; J45.909 Unspecified asthma, uncomplicated; J18.9 Pneumonia, unspecified organism; K21.9 Gastro-esophageal reflux disease without esophagitis; M19.90 Unspecified osteoarthritis, unspecified site; L40.9 Psoriasis, unspecified; Z79.82 Long term (current) use of aspirin; Z79.02 Long term (current) use of antithrombotics/antiplatelets; Z79.2 Long term (current) use of antibiotics; Z88.2 Allergy status to sulfonamides; Z88.8 Allergy status to other drugs, medicaments and biological substances; Z98.890 Other specified postprocedural states; Z90.710 Acquired absence of both cervix and uterus; Z79.899 Other long term (current) drug therapy
CPT/HCPCS: 88305; 45385; J2704

== ENCOUNTER → 2022-08-31 | Outpatient (CLI) | payer MEDICARE, OTHER ==
--- NOTE | 2022-09-01 17:56 | MM ---
Reason for Exam: Screening (asymptomatic). Last screening mammogram was performed 12 month(s) ago. Patient History: Menarche at age 13. First Full-Term at age 17. Hysterectomy at age 54. Postmenopausal. Patient has history of breast feeding. Paternal grandmother had breast cancer. Risk Values: Mallika 5 year model risk: 1.2%. NCI Lifetime model risk: 4.6%. Prior Study Comparison: 08/22/2018 Screening Mammogram, [facility]. 07/09/2020 Screening Mammogram, [facility]. 08/18/2021 Bilateral Diagnostic Mammogram, [facility]. Tissue Density: There are scattered fibroglandular densities. Findings: Analyzed By CAD. Chronic nodularity lateral right breast. Unchanged low axillary tail lymph node on the right. There is no suspicious group of microcalcifications or new suspicious mass in either breast. Overall Assessment: Benign, BI-RAD 2 Management: Screening Mammogram of both breasts in 1 year. 1. Patient should continue monthly self breast exams. 2. A clinical breast exam by your physician is recommended on an annual basis. 3. This exam should not preclude additional follow-up of suspicious palpable abnormalities. Electronically signed and approved by: Oren Grullon M.D. Radiologist
== END | disposition home or self-care (01) ==
LOC: RADMAMWWP 13:34
PROVIDERS: ATTEND Family Medicine
DX: Z12.31 Encounter for screening mammogram for malignant neoplasm of breast (principal); Z78.0 Asymptomatic menopausal state; Z80.3 Family history of malignant neoplasm of breast
CPT/HCPCS: 77063; 77067

== ENCOUNTER 2023-02-07 09:56 | Day surgery (SDC) | payer MEDICARE, OTHER ==
[2023-02-01 10:39] VITALS: BMI 38.6
[~2023-02-07 09:56] MED LIST changes: +ALPRAZolam 0.25 MG TAB PO PRN; +ALPRAZolam 0.5 MG TAB PO PRN; +ASPIRIN 325 MG TAB PO ONE; +ATORVASTATIN 80 MG TAB PO ONE; +HEPARIN SODIUM,PORCINE (1 ML) 2,500 UNIT in SODIUM CHLORIDE 0.9% 250 ML IRRIGATION PRN; +HEPARIN SODIUM,PORCINE 10,000 UNIT in SODIUM CHLORIDE 0.9% 1,000 ML IRRIGATION PRN; -LACTATED RINGERS 1,000 ML IV SCH; +NITROGLYCERIN SL TABS 0.4 MG TAB SUBLINGUAL PRN; +SODIUM CHLORIDE 0.9% 1,000 ML in EMPTY BAG 1 BAG IV SCH
[2023-02-07 10:26] LABS: Glucose,Whole Blood 147 mg/dL (70-110)
[2023-02-07 10:38] LABS: Basophils % (A) 0 %; Eosinophils # (A) 0.1 k/uL (0-0.7); Eosinophils % (A) 2 %; HCT 43.7 % (34.0-46.0); HGB 14.3 gm/dL (11.4-16.0); Lymphocytes # (A) 2.6 k/uL (1.0-4.8); Lymphocytes % (A) 36 %; MCH 28.5 pg (25.0-35.0); MCHC 32.8 g/dL (31.0-37.0); MCV 86.9 fL (80.0-100.0); Mean Platelet Volume 10.6; Monocytes # (A) 0.4 k/uL (0-1.0); Monocytes % (A) 6 %; Neutrophils % (A) 54 %; Platelet Count 172 k/uL (150-450); RBC 5.02 m/uL (3.80-5.40); WBC 7.4 k/uL (3.8-10.6)
[2023-02-07 10:50] LABS: African American GFR (CKD) >90 (>60 ml/min/1.73 sqM); Blood Urea Nitrogen 19 mg/dL (7-17); Calcium 9.8 mg/dL (8.4-10.2); Carbon Dioxide 26 mmol/L (22-30); Glucose 150 mg/dL (74-99); Non-African American GFR(CKD) 81 (>60 ml/min/1.73 sqM)
[2023-02-07 10:53] VITALS: TEMP 97.8
[2023-02-07 11:00] LABS: Anion Gap 9 mmol/L; Chloride 106 mmol/L (98-107); Potassium 4.4 mmol/L (3.5-5.1); Sodium 141 mmol/L (137-145)
[2023-02-07] MEDS ORDERED: LIDOCAINE 1% INJ 10MG/ML (30 ML VIAL-PF) SQ ONE (13:11)
[2023-02-07] MEDS ORDERED: VERAPAMIL SYRINGE (5 MG/10 ML) INTRAARTER ONE (13:14)
[2023-02-07] MEDS ORDERED: HEPARIN SODIUM 1,000 UN/ML (10ML VL) IV ONE (13:14)
[2023-02-07] MEDS ORDERED: MIDAZOLAM 2 MG/2 ML VIAL IVP ONE (13:14)
[2023-02-07] MEDS ORDERED: IOPAMIDOL-370 100ML BTL INJ ONE (13:17)
[2023-02-07] MEDS ORDERED: RX INFO: IV CONTRAST WAS GIVEN 1 EACH MISC MISCELLANE PRN (13:22)
--- NOTE | 2023-02-07 13:25 | P.PCN ---
Date of Procedure: 02/07/23 Operative Findings: CARDIAC CATHETERIZATION PERFORMING PHYSICIAN: Román Ballard MD, RPVI PROCEDURE PERFORMED: 1. Selective right and left coronary angiogram 2. Left heart catheterization 3. Ultrasound-guided access of the right radial artery INDICATION: Shortness of breath and abnormal myocardial perfusion imaging stress test COMPLICATION: None APPROACH: Right radial artery LEVEL OF SEDATION: Moderate with a sedation length of 10 minutes PROCEDURE DESCRIPTION: After obtaining an informed consent, the patient was brought to cardiac medical laboratory assistant. Local anesthesia was performed using lidocaine subcutaneously. The right radial artery was cannulated using Seldinger technique, the guidewire passed easily, following that we advanced a 5-[place]or[place] sheath dilator assembly, the wire and dilator were removed and sheath was flushed. Following that, 2 mg of verapamil along with 5000 unit heparin were given. Selective right and left coronary angiogram using a 6-Comor[place] JR4 and JL 3.5 catheters. Following that we did left heart catheterization using 6-Comoran pigtail catheter. The procedure was completed there was no complication. SELECTIVE CORONARY ANGIOGRAM: The right coronary artery: Large-caliber vessel and a dominant vessel appeared to be angiographically normal Left main: Is normal and bifurcates into the LCx and LAD The left circumflex: Large-caliber vessel and nondominant vessel. Its angiographically normal. Gives rises into 3 obtuse marginal branches appeared to be angiographically normal The left anterior descending artery: Is angiographically normal and gives rises into a large diagonal branch which appeared to be angiographically normal HEMODYNAMICS: The LVEDP was 10 mmHg was no significant gradient across aortic valve CONCLUSION: 1. Normal coronary angiogram 2. Normal LVEDP POSTPROCEDURE MANAGEMENT: Medical treatment
[2023-02-07] MEDS ORDERED: SODIUM CHLORIDE 0.9% 1,000 ML IV SCH (13:30)
[2023-02-07 18:58] VITALS: RESP 16
[2023-02-07 19:01] VITALS: BP 116/63; PULSE 76
== END 2023-02-07 17:10 | disposition home or self-care (01) ==
LOC: CATHCVL 09:56
PROVIDERS: ATTEND Internal Medicine Interventional Cardiology
DX: R07.9 Chest pain, unspecified (principal); I10 Essential (primary) hypertension; E78.5 Hyperlipidemia, unspecified; E66.3 Overweight; Z79.899 Other long term (current) drug therapy
CPT/HCPCS: 93458; 76937; 80048; 85025; C1769; C1894; J2250; J2001; J1644; Q9967

== ENCOUNTER → 2023-08-01 | Outpatient (CLI) | payer MEDICARE ==
--- NOTE | 2023-08-01 11:34 | MR ---
EXAMINATION TYPE: MR brain wo con DATE OF EXAM: 08/01/2023 11:18 AM CLINICAL INDICATION:Female, 67 years old with history of G250 tremor, Tremors COMPARISON: None. TECHNIQUE: Multi planar, multi sequence imaging was performed through the brain including: T1, T2, In version recovery, Diffusion weighted imaging, and gradient echo imaging. No gadolinium was given. FINDINGS: Mild cerebral atrophy with proportional dilation of ventricular system. Scattered foci of high T2 s ignal intensity are seen within the periventricular white matter. Midline structures show no abnormal ity. Diffusion-weighted imaging shows no evidence of restricted diffusion. The susceptibility weighte d images do not reveal any evidence for micro-hemorrhage. The bone marrow signal is within normal limits. Paranasal sinuses and mastoid air cells: Mucosal thickening/retention cyst within the left maxillary sinus. Visualized orbits: Orbital contents are intact. IMPRESSION: 1. No evidence of intracranial mass or acute/subacute infarct. 2. Nonspecific white matter changes, likely secondary to small vessel ischemic disease.
== END | disposition home or self-care (01) ==
LOC: RADMRIMAIN 10:46
PROVIDERS: ATTEND Psychiatry & Neurology Neurology
DX: G25.0 Essential tremor (principal)
CPT/HCPCS: 70551

== ENCOUNTER → 2023-09-15 | Outpatient (CLI) | payer MEDICARE ==
[2023-09-15 14:51] LABS: INR 0.9 (<1.2); Partial Thromboplastin Time 24.8 sec (22.0-30.0); Prothrombin Time 10.3 sec (10.0-12.5)
[2023-09-15 19:49] LABS: Basophils # (A) 0.04 X 10*3/uL (0.00-0.10); Basophils % (A) 0.5 %; Eosinophils # (A) 0.11 X 10*3/uL (0.04-0.35); Eosinophils % (A) 1.3 %; HCT 45.9 % (37.2-46.3); HGB 14.7 g/dL (12.0-15.0); Lymphocytes # (A) 2.94 X 10*3/uL (0.90-5.00); Lymphocytes % (A) 34.7 %; MCH 28.1 pg (27.0-32.0); MCV 87.6 FL (80.0-97.0); Mean Platelet Volume 13.7 FL (9.5-12.2); Monocytes # (A) 0.64 X 10*3/uL (0.20-1.00); Monocytes % (A) 7.6 %; NRBC Per 100 WBC 0 X 10*3/uL (0.00-0.01); Neutrophils # (A) 4.66 X 10*3/uL (1.80-7.70); Platelet Count 198 X 10*3/uL (140-440); RBC 5.24 X 10*6/uL (4.10-5.20); RDW 14.6 % (11.5-14.5); WBC 8.47 X 10*3/uL (4.50-10.00)
[2023-09-15 21:13] LABS: BUN/Creat Ratio 20.11 Ratio (12.00-20.00); Blood Urea Nitrogen 18.1 mg/dL (9.0-27.0); Calcium 10.8 mg/dL (8.7-10.3); Carbon Dioxide 24.5 mmol/L (21.6-31.8); Chloride 108 mmol/L (96-109); Glucose 91 mg/dL (70-110); Potassium 4.4 mmol/L (3.5-5.5); Sodium 144 mmol/L (135-145)
== END | disposition home or self-care (01) ==
LOC: LABWHC1 13:34
PROVIDERS: ATTEND Psychiatry & Neurology Neurology
DX: R58 Hemorrhage, not elsewhere classified (principal); R41.3 Other amnesia; Z79.899 Other long term (current) drug therapy
CPT/HCPCS: 36415; 80048; 85025; 85610; 85730

== ENCOUNTER → 2024-09-18 | Outpatient (CLI) | payer MEDICARE ==
[2024-09-18 18:33] LABS: Basophils # (A) 0.05 X 10*3/uL (0.00-0.10); Basophils % (A) 0.7 %; Eosinophils # (A) 0.41 X 10*3/uL (0.04-0.35); Eosinophils % (A) 5.8 %; HGB 14.2 g/dL (12.0-15.0); Lymphocytes # (A) 2.12 X 10*3/uL (0.90-5.00); Lymphocytes % (A) 29.9 %; MCH 29.2 pg (27.0-32.0); MCHC 32.3 g/dL (32.0-37.0); MCV 90.3 FL (80.0-97.0); Mean Platelet Volume 12.9 FL (9.5-12.2); Monocytes # (A) 0.54 X 10*3/uL (0.20-1.00); Monocytes % (A) 7.6 %; NRBC Per 100 WBC 0 X 10*3/uL (0.00-0.01); Neutrophils # (A) 3.93 X 10*3/uL (1.80-7.70); Neutrophils % (A) 55.6 %; Platelet Count 190 X 10*3/uL (140-440); RBC 4.87 X 10*6/uL (4.10-5.20); RDW 15.2 % (11.5-14.5); WBC 7.08 X 10*3/uL (4.50-10.00)
[2024-09-18 18:56] LABS: BUN/Creat Ratio 16.75 Ratio (12.00-20.00); Blood Urea Nitrogen 13.4 mg/dL (9.0-27.0); Calcium 10.3 mg/dL (8.7-10.3); Carbon Dioxide 25.2 mmol/L (21.6-31.8); Chloride 107 mmol/L (96-109); Glucose 144 mg/dL (70-110); Sodium 145 mmol/L (135-145)
== END | disposition home or self-care (01) ==
LOC: LABWHC1 14:13
PROVIDERS: ATTEND Psychiatry & Neurology Neurology
DX: Z51.81 Encounter for therapeutic drug level monitoring (principal); Z79.899 Other long term (current) drug therapy
CPT/HCPCS: 36415; 80048; 85025

== ENCOUNTER → 2024-09-18 | Outpatient (CLI) | payer MEDICARE ==
--- NOTE | 2024-09-18 14:41 | MM ---
Reason for Exam: Screening (asymptomatic). Last mammogram was performed 2 year(s) and 1 month(s) ago. Patient History: Menarche at age 13. First Full-Term at age 17. Hysterectomy at age 54. Postmenopausal. Patient has history of breast feeding. Paternal grandmother had breast cancer. Risk Values: Mallika 5 year model risk: 1.2%. NCI Lifetime model risk: 4.2%. Prior Study Comparison: 07/09/2020 Screening Mammogram, [facility] . 08/18/2021 Bilateral Diagnostic Mammogram, [facility]. 08/31/2022 Bilateral MG 3D screening mammo w/cad, [facility]. Tissue Density: The breasts are heterogeneously dense, which may obscure small masses. Findings: Analyzed By CAD. There is no suspicious group of microcalcifications or new suspicious mass in either breast. Stable nodule right breast. Overall Assessment: Benign, BI-RAD 2 Management: Screening Mammogram of both breasts in 1 year. . Patient should continue monthly self-breast exams. A clinical breast exam by your physician is recommended on an annual basis. This exam should not preclude additional follow-up of suspicious palpable abnormalities. Note on Mallika scores and lifetime risk: 1. A Mallika score greater than 3% is considered moderate risk. If this is the case, consider specialist referral to assess eligibility for a risk reducing agent. 2. If overall lifetime risk for the development of breast cancer is 20% or higher, the patient may qualify for future screening with alternating mammogram and breast MRI. [facility], , 09/18/2024 2:39 PM. Electronically signed and approved by: Tomas Peace M.D. Radiologis
== END | disposition home or self-care (01) ==
LOC: RADMAMWWP 13:51
PROVIDERS: ATTEND Family Medicine
DX: Z12.31 Encounter for screening mammogram for malignant neoplasm of breast (principal); R92.333 Mammographic heterogeneous density, bilateral breasts; Z78.0 Asymptomatic menopausal state; Z80.3 Family history of malignant neoplasm of breast
CPT/HCPCS: 77063; 77067